=== PATIENT | female | born 1950 | race Caucasian/White ===

== ENCOUNTER 2022-05-27 23:55 | Emergency (ER) | payer OTHER ==
[2022-05-28 01:10] LABS: Absolute Lymphocytes (CBC) 2.1 K/uL (0.7-4.9); Hematocrit 29.2 % (36.0-45.0); Lymphocytes % 17.6 % (15.3-44.8); MCV 94.5 fL (80-100); MPV 8.7 fL (7.6-11.3); RBC Red Blood Cell Count 3.09 M/uL (3.86-4.86)
[2022-05-28 01:20] LABS: Albumin 3.1 g/dL (3.4-5.0); Bilirubin Total 0.2 mg/dL (0.2-1.0); Potassium 4.4 mmol/L (3.5-5.1); Protein, Total 6.1 g/dL (6.4-8.2)
[2022-05-28 01:41] LABS: Urine Blood Negative (Negative); Urine Glucose Negative (Negative); Urine Protein Negative (Negative); Urine pH 5.5 (5.0-7.0)
[2022-05-28] MEDS ORDERED: NA CHLORIDE 0.9% 1,000 ML ONE (01:49)
[2022-05-28] MEDS ORDERED: PANTOPRAZOLE 40 MG INJ ONE (02:34)
[2022-05-28] MEDS ORDERED: NA CHLORIDE 0.9% 250 ML ONE (02:35)
[2022-05-28 03:07] LABS: Protime INR 1.03
--- NOTE | 2022-05-28 04:35 | ER ---
Nurse's Notes [facility] Name: Gabrielle Suazo Age: 71 yrs Sex: Female : 1950 Arrival Date: 05/27/2022 Time: 23:59 Bed 10 Private MD: Diagnosis: Lower GI Bleed Presentation: 05/28 00:17 Chief complaint: Patient states: Pt reports several episodes of diarrhea and nausea kb3 that began at 2100 tonight with associated weakness and indigestion. Pt reports the diarrhea was dark red and smelled foul. Coronavirus screen: Vaccine status: Patient reports receiving the 2nd dose of the covid vaccine. Client denies travel out of the [place] in the last 14 days. At this time, the client does not indicate any symptoms associated with coronavirus-19. Ebola Screen: Patient negative for fever greater than or equal to 101.5 degrees Fahrenheit, and additional compatible Ebola Virus Disease symptoms Patient denies exposure to infectious person. Patient denies travel to an Ebola-affected area in the 21 days before illness onset. No symptoms or risks identified at this time. Initial Sepsis Screen: Does the patient meet any 2 criteria? No. Patient's initial sepsis screen is negative. Does the patient have a suspected source of infection? No. Patient's initial sepsis screen is negative. Risk Assessment: Do you want to hurt yourself or someone else? Patient reports no desire to harm self or others. Onset of symptoms was May 27, 2022 at 21:00. 00:17 Method Of Arrival: Ambulatory kb3 00:17 Acuity: JAZMINE 3 kb3 Triage Assessment: 00:20 General: Appears in no apparent distress. Behavior is calm, cooperative. Pain: Denies kb3 pain. GI: Reports diarrhea, nausea, vomiting. 00:20 GI: Reports. kb3 Historical: - Allergies: 00:20 No Known Allergies; kb3 - Home Meds: 00:20 Keppra 750 mg Oral tab 1 tab 2 times per day [Active]; kb3 - PMHx: 00:20 Seizure; kb3 - PSHx: 00:20 Colectomy; Colostomy; Cholecystectomy; kb3 - Immunization history:: Adult Immunizations up to date, Client reports receiving the 2nd dose of the Covid vaccine, Last tetanus immunization: up to date. - Social history:: Smoking status: Patient reports the use of cigarette tobacco products, smokes one-half pack cigarettes per day, Patient uses alcohol, on a daily basis. Patient/guardian denies using street drugs. Screenin:57 Abuse screen: Denies threats or abuse. Denies injuries from another. Nutritional kd3 screening: No deficits noted. Tuberculosis screening: No symptoms or risk factors identified. Fall Risk Gait- Weak (10 pts.). Assessment: 00:57 General: Appears uncomfortable, Behavior is calm, cooperative. GI: Abdomen is kd3 non-distended. 03:57 Reassessment: Patient is alert, oriented x 3, equal unlabored respirations, skin bb warm/dry/pink. awaiting diagnostic results, Dr Zuñiga at bedside for discussion of findings and recommendations pt to be transferred for higher level of care. Pt verbalized understanding and agrees to plan of care. IV site intact, patent, with fluids infusing. 05:27 Reassessment: Patient is alert, oriented x 3, equal unlabored respirations, skin bb warm/dry/pink. EMS at bedside for transport of pt to [facility] pt's IV sites intact, patent with fluids infusing on [id number]. Vital Signs: 00:17 BP 143 / 89; Pulse 110; Resp 20; Temp 98.9; Pulse Ox 97% ; Weight 74.84 kg; Height 5 kb3 ft. 4 in. (162.56 cm); Pain 0/10; 03:59 BP 123 / 77; Pulse 101; Resp 18 S; Pulse Ox 98% on R/A; bb 00:17 Body Mass Index 28.32 (74.84 kg, 162.56 cm) kb3 ED Course: 05/27 23:59 Patient arrived in ED. ja2 05/28 00:20 Triage completed. kb3 00:20 Arm band placed on left wrist. kb3 00:32 Shu Fine, JESI is Primary Nurse. kd3 00:34 Umair Zuñiga MD is Attending Physician. mh7 00:57 Patient has correct armband on for positive identification. kd3 00:57 CBC with Diff Sent. kd3 00:57 CMP Sent. kd3 00:57 Lipase Sent. kd3 01:58 CT Abd/Pelvis - IV Contrast Only In Process Unspecified. EDMS 02:24 COVID-19 SARS RT PCR (Document "Date of Onset" if Symptomatic) Sent. kd3 02:24 Ptt, Activated Sent. kd3 02:24 Protime (+inr) Sent. kd3 03:45 Chest Single View XRAY In Process Unspecified. EDMS 03:56 Initiated transfer to [facility], spoke with Wendy. Pt wanted to go to [facility], but they wm are at capacity. 04:39 Pt accepted for transfer by Dr. Kassandra Monreal \\T\\ 04:33 per Wendy Babin. wm 05:05 First set of blood cultures drawn by me. Inserted saline lock: 20 gauge in left hand, bb using aseptic technique. 05:29 No provider procedures requiring assistance completed. Patient transferred, IV remains bb in place. Administered Medications: 02:24 Drug: NS 0.9% 1000 ml Route: IV; Rate: 1000 ml; Site: right antecubital; kd3 02:41 Drug: ProTONIX (pantoprazole) 80 mg Route: IVP; Site: right antecubital; kd3 05:29 Follow up: Response: No adverse reaction bb 03:10 Drug: ProTONIX (pantoprazole) 8 mg/hr Route: IV; Rate: 25 ml/hr; Site: right kd3 antecubital; 03:11 Not Given (Patient Refused): Zofran (Ondansetron) 4 mg IVP once; over 2 minutes kd3 03:11 Not Given (Patient Refused): morphine 2 mg IVP once over 4 mins kd3 05:20 Drug: LevaQUIN (levofloxacin) 500 mg Volume: 100 ml; Route: IVPB; Infused Over: 60 bb mins; Site: left hand; 05:28 Follow up: IV Status: Infusion continued upon transfer bb 05:28 Follow up: IV Status: Infusion continued upon transfer bb Medication: 00:57 VIS not applicable for this client. kd3 Outcome: 04:01 Instructed on the need for transfer. bb 04:35 ER care complete, transfer ordered by . [facility] 05:29 Transferred by ground EMS to [facility], Transfer form completed. bb X-rays sent w/ patient. 05:29 Condition: stable 05:29 Patient left the ED. bb Signatures: Dispatcher [employer] EDEliane Ortiz RN RN Umair Ramos MD MD mh7 Lynn Singleton Jessica ja Shu Fine RN RN kd3 Tram Norris RN RN kb3 Corrections: (The following items were deleted from the chart) 00:25 00:17 Chief complaint: Patient states: Pt reports several episodes of diarrhea and kb3 nausea that began at 2100 tonight with associated weakness and indigestion kb3
--- NOTE | 2022-05-28 04:36 | EDPHYS ---
Physician Documentation [facility] Name: Gabrielle Suazo Age: 71 yrs Sex: Female : 1950 Arrival Date: 05/27/2022 Time: 23:59 Bed 10 Private MD: MATT Physician Umair Zuñiga HPI: 05/28 01:38 This 71 yrs old Female presents to ER via Ambulatory with complaints of Nausea, mh7 Dizziness. 01:38 The patient presents to the emergency department with nausea, that is moderate, mh7 diarrhea, that is intermittent, abdominal pain, of the epigastric area, right upper quadrant and left upper quadrant, described as intermittent, vague,\\E\\ waxing and waning, and does not radiate. Onset: The symptoms/episode began/occurred last night, at 21:00. Possible causes: bad food exposure, possibly bad home food. The symptoms are aggravated by nothing. The symptoms are alleviated by nothing. Associated signs and symptoms: Pertinent positives: diarrhea, nausea, Pertinent negatives: anorexia, belching, constipation, dysuria, fever, flatulence, hematuria, vaginal discharge. Severity of symptoms: At their worst the symptoms were moderate last night, in the emergency department the symptoms have improved moderately. Historical: - Allergies: 00:20 No Known Allergies; kb3 - Home Meds: 00:20 Keppra 750 mg Oral tab 1 tab 2 times per day [Active]; kb3 - PMHx: 00:20 Seizure; kb3 - PSHx: 00:20 Colectomy; Colostomy; Cholecystectomy; kb3 - Immunization history:: Adult Immunizations up to date, Client reports receiving the 2nd dose of the Covid vaccine, Last tetanus immunization: up to date. - Social history:: Smoking status: Patient reports the use of cigarette tobacco products, smokes one-half pack cigarettes per day, Patient uses alcohol, on a daily basis. Patient/guardian denies using street drugs. ROS: 01:38 Constitutional: Negative for fever, chills, and weight loss, Eyes: Negative for injury, mh7 pain, redness, and discharge, ENT: Negative for injury, pain, and discharge, Neck: Negative for injury, pain, and swelling, Cardiovascular: Negative for chest pain, palpitations, and edema, Respiratory: Negative for shortness of breath, cough, wheezing, and pleuritic chest pain, Back: Negative for injury and pain, : Negative for injury, bleeding, discharge, and swelling, MS/Extremity: Negative for injury and deformity, Skin: Negative for injury, rash, and discoloration, Neuro: Negative for headache, weakness, numbness, tingling, and seizure, Psych: Negative for depression, anxiety, suicide ideation, homicidal ideation, and hallucinations, Allergy/Immunology: Negative for hives, rash, and allergies, Endocrine: Negative for neck swelling, polydipsia, polyuria, polyphagia, and marked weight changes, Hematologic/Lymphatic: Negative for swollen nodes, abnormal bleeding, and unusual bruising. Exam: 01:38 Head/Face: Normocephalic, atraumatic. Eyes: Pupils equal round and reactive to light, mh7 extra-ocular motions intact. Lids and lashes normal. Conjunctiva and sclera are non-icteric and not injected. Cornea within normal limits. Periorbital areas with no swelling, redness, or edema. Neck: Trachea midline, no thyromegaly or masses palpated, and no cervical lymphadenopathy. Supple, full range of motion without nuchal rigidity, or vertebral point tenderness. No Meningismus. Chest/axilla: Normal chest wall appearance and motion. Nontender with no deformity. No lesions are appreciated. Cardiovascular: Regular rate and rhythm with a normal S1 and S2. No gallops, murmurs, or rubs. Normal PMI, no JVD. No pulse deficits. Respiratory: Lungs have equal breath sounds bilaterally, clear to auscultation and percussion. No rales, rhonchi or wheezes noted. No increased work of breathing, no retractions or nasal flaring. 01:38 Back: No spinal tenderness. No costovertebral tenderness. Full range of motion. Skin: Warm, dry with normal turgor. Normal color with no rashes, no lesions, and no evidence of cellulitis. MS/ Extremity: Pulses equal, no cyanosis. Neurovascular intact. Full, normal range of motion. Neuro: Awake and alert, GCS 15, oriented to person, place, time, and situation. Cranial nerves II-XII grossly intact. Motor strength 5/5 in all extremities. Sensory grossly intact. Cerebellar exam normal. Normal gait. Psych: Awake, alert, with orientation to person, place and time. Behavior, mood, and affect are within normal limits. 01:38 Constitutional: The patient appears in no acute distress, alert, awake, uncomfortable. 01:38 Abdomen/GI: Inspection: obese Bowel sounds: normal, in all quadrants, Palpation: moderate abdominal tenderness, in the epigastric area, mass, is not appreciated, rebound tenderness, is not appreciated, voluntary guarding, is not appreciated, involuntary guarding, is not appreciated, no appreciated organomegaly, Indicators: McBurney's point is not tender, Galvan's sign is negative, Rovsing's sign is negative, Obturator sign is negative, Psoas sign is negative, Liver: no appreciated palpable abnormalities, Hernia: not appreciated. 02:17 Abdomen/GI: Rectal exam: rectal tone normal, Stool: grossly bloody, guaiac positive, mh7 maroon, mass, is not appreciated, swelling, is not appreciated, tenderness, is not appreciated, fecal impaction, is not appreciated, the exam is chaperoned by the nurse. Vital Signs: 00:17 BP 143 / 89; Pulse 110; Resp 20; Temp 98.9; Pulse Ox 97% ; Weight 74.84 kg; Height 5 kb3 ft. 4 in. (162.56 cm); Pain 0/10; 03:59 BP 123 / 77; Pulse 101; Resp 18 S; Pulse Ox 98% on R/A; bb 00:17 Body Mass Index 28.32 (74.84 kg, 162.56 cm) kb3 MDM: 04:33 Differential diagnosis: Nonspecific abd pain, gastritis, pancreatitis, diverticulitis, mh7 viral gastroenteritis, gastroenteritis, GI bleed. Data reviewed: vital signs, nurses notes, lab test result(s), CBC, electrolytes, EKG, radiologic studies, CT scan, plain films. Data interpreted: Pulse oximetry: on room air is 98 %. Interpretation: normal. Counseling: I had a detailed discussion with the patient and/or guardian regarding: the historical points, exam findings, and any diagnostic results supporting the discharge/admit diagnosis, lab results, radiology results, the need to transfer to another facility, [facility] does not immediately have the required specialist. Response to treatment: the patient's symptoms have markedly improved after treatment. 04:35 Patient medically screened. mh7 05/28 00:45 Order name: CBC with Diff; Complete Time: 01:37 kd3 0815 00:45 Order name: CMP; Complete Time: 01:37 3 05/28 00:45 Order name: Lipase; Complete Time: 01:37 [facility] 05/28 01:42 Order name: Urine Dipstick-Ancillary; Complete Time: 01:42 [facility] 05/28 01:43 Order name: COVID-19 SARS RT PCR (Document "Date of Onset" if Symptomatic); Complete [facility] Time: 04:15 05/28 01:44 Order name: Protime (+inr); Complete Time: 03:27 [facility] 05/28 01:09 Order name: CT Abd/Pelvis - IV Contrast Only [facility] 05/28 01:44 Order name: Ptt, Activated; Complete Time: 03:27 [facility] 05/28 01:44 Order name: Type And Screen; Complete Time: 04:25 [facility] 05/28 03:27 Order name: Chest Single View XRAY [facility] 05/28 04:16 Order name: Blood Culture Adult (2) [facility] 05/28 00:45 Order name: IV Saline Lock; Complete Time: 00:57 [facility] 05/28 00:45 Order name: Labs collected and sent; Complete Time: 00:57 [facility] 05/28 01:08 Order name: Urine Dipstick-Ancillary (obtain specimen); Complete Time: 01:47 [facility] 05/28 01:08 Order name: EKG; Complete Time: 01:09 [facility] 05/28 01:08 Order name: EKG - Nurse/Tech; Complete Time: 02:24 mh7 Administered Medications: 02:24 Drug: NS 0.9% 1000 ml Route: IV; Rate: 1000 ml; Site: right antecubital; kd3 02:41 Drug: ProTONIX (pantoprazole) 80 mg Route: IVP; Site: right antecubital; kd3 05:29 Follow up: Response: No adverse reaction bb 03:10 Drug: ProTONIX (pantoprazole) 8 mg/hr Route: IV; Rate: 25 ml/hr; Site: right kd3 antecubital; 03:11 Not Given (Patient Refused): Zofran (Ondansetron) 4 mg IVP once; over 2 minutes kd3 03:11 Not Given (Patient Refused): morphine 2 mg IVP once over 4 mins kd3 05:20 Drug: LevaQUIN (levofloxacin) 500 mg Volume: 100 ml; Route: IVPB; Infused Over: 60 bb mins; Site: left hand; 05:28 Follow up: IV Status: Infusion continued upon transfer bb 05:28 Follow up: IV Status: Infusion continued upon transfer bb Disposition Summary: 05/28/22 04:35 Transfer Ordered Transfer Location: [place] [address] Reason: Higher level of care [facility] Condition: Stable mh Problem: new 7 Symptoms: have improved mh7 Accepting Physician: Dr. Monreal(05/28/22 05:29) bb Diagnosis - Lower GI Bleed [facility] Forms: - Medication Reconciliation Form [facility] - SBAR form [facility] Signatures: Dispatcher [employer] EDEliane Ortiz RN RN bb Umair Zuñiga MD MD mh7 Shu Fine RN RN kd3 Tram Norris RN RN kb3 Corrections: (The following items were deleted from the chart) 05:29 04:35 Dr. Monreal [facility] bb
[2022-05-28] MEDS ORDERED: Levofloxacin500mg IV 500 MG/100 ML BAG IV ONE (05:00)
[2022-05-28 07:20] VITALS: TEMP 98.9
[2022-05-28 07:31] VITALS: BP 123/77; O2SAT 98
--- NOTE | 2022-05-28 09:51 | RAD REPORT ---
EXAM DESCRIPTION: XR Chest, 1 View CLINICAL HISTORY: The patient is 71 years old and is Female; CONGESTION TECHNIQUE: Frontal view of the chest. COMPARISON: No relevant prior studies available. FINDINGS: LUNGS: Patchy opacities in the lower lobes is noted, left greater than right. The lungs are otherwise clear. PLEURAL SPACE: Unremarkable. No pneumothorax. HEART: Unremarkable. No cardiomegaly. MEDIASTINUM: Unremarkable. BONES/JOINTS: Mild degenerative change of the bones is noted. UPPER ABDOMEN: Unremarkable as visualized. IMPRESSION: Bibasilar opacities, left greater than right. Findings suggest an infectious process. Electronically signed by: Gloria Samayoa MD 05/28/2022 4:05 AM CDT Due to temporary technical issues with the PACS/Fluency reporting system, reports are being signed by the in house radiologists without review as a courtesy to insure prompt reporting. The interpreting radiologist is fully responsible for the content of the report.
--- NOTE | 2022-05-28 09:59 | RAD REPORT ---
EXAM DESCRIPTION: CT Abdomen and Pelvis With Intravenous Contrast CLINICAL HISTORY: Abdominal pain, acute, nonlocalized TECHNIQUE: Axial computed tomography images of the abdomen and pelvis with intravenous contrast. S agittal and coronal reformatted images were created and reviewed. This CT exam was performed using one or more of the following dose reduction techniques: automated exposure control, adjustment of t he mA and/or kV according to patient size, and/or use of iterative reconstruction technique. COMPARISON: No relevant prior studies available. FINDINGS: Lung bases: Partially visualized ill-defined, spiculated left basilar opacity measuring 5 x 1.8 cm in axial dimensions. Surrounding patchy reticulonodular and linear opacities. Additional p atchy reticulonodular right basilar opacities. ABDOMEN: Liver: Unremarkable. No mass. Gallbladder and bile ducts: Prior cholecystectomy. No ductal dilation. Pancreas: Unremarkable. No mass. No ductal dilation. Spleen: Unremarkable. No splenomegaly. Adrenals: 1.8 cm left and 1.6 cm right adrenal nodules. Kidneys and ureters: Small left renal cysts. No follow-up imaging is necessary. Lobulated left ck l contour with areas of cortical thinning/scar. No calculi. No hydronephrosis. Stomach and bowel: Mid abdominal small bowel anastomosis. There are borderline prominent small ora l loops with air-fluid levels in the left abdomen. Subtle transition in the right pelvis. Moderate st ool within the proximal to mid large bowel. Colonic diverticula without adjacent inflammatory change. No mucosal thickening. PELVIS: Appendix: Normal caliber appendix. No findings to suggest acute appendicitis. Bladder: The urinary bladder is decompressed. Reproductive: There has been a hysterectomy. No adnexal cysts or masses are identified. ABDOMEN and PELVIS: Intraperitoneal space: Unremarkable. No free air. No significant fluid collection. Bones/joints: Multilevel spondylosis. No acute fracture. No dislocation. Soft tissues: Unremarkable. Vasculature: Unremarkable. No abdominal aortic aneurysm. Lymph nodes: Unremarkable. No enlarged lymph nodes. Other findings: Bilateral pelvic surgical clips. IMPRESSION: 1. Findings which may be related to mild ileus. Early/partial small bowel obstruction is not excluded. 2. Bilateral adrenal lesions. Possible adenomas. In light of the findings in the lower chest, metas tases cannot be entirely excluded on the basis of this examination. Recommend adrenal washout CT, deanna mical shift MRI or PET/CT (Consider PET/CT when morphological characteristics suggest metastasis). Re ferences: JACR 2017 May;14(8):1038-44, JCAT 2016 Dec-Jan;40(2):194-200 3. Partially visualized ill-defined spiculated left basilar opacity which may be related to pleural parenchymal scar. Underlying mass/malignancy is not excluded. Recommend prompt non-contrast Chest CT for further evaluation. These guidelines do not apply to immunocompromised patients and patients wit h cancer. Follow up in patients with significant comorbidities as clinically warranted. For lung canc er screening, adhere to Lung-RADS guidelines. Reference: Radiology. 2017; 284(1):228-43. 4. Left greater than right basilar infiltrates. 5. Other findings as above. Electronically signed by: Gloria Cotto MD 05/28/2022 2:34 AM CDT Due to temporary technical issues with the PACS/Fluency reporting system, reports are being signed by the in house radiologists without review as a courtesy to insure prompt reporting. The interpreting radiologist is fully responsible for the content of the report.
--- NOTE | 2022-05-29 08:17 | EKG ---
Test Date: 2022-05-28 Test Time: 02:15:47 Rotary Saw Operator: ZAINAB MEASUREMENT RESULTS: Intervals: Rate: 96 CT: 168 QRSD: 84 QT: 350 QTc: 442 [place]: P: 75 CT: 168 QRS: 70 T: 28 INTERPRETIVE STATEMENTS: Sinus rhythm with occasional premature ventricular complexes Otherwise normal ECG No previous ECG available for comparison Electronically Signed On 05-29-22 08:11:32 CDT by Bertrand Bah
== END 2022-05-28 05:29 | disposition short-term general hospital (02) ==
LOC: ER 23:55
DX: K92.2 Gastrointestinal hemorrhage, unspecified (principal); R11.0 Nausea; Z20.822 Contact with and (suspected) exposure to COVID-19; F17.210 Nicotine dependence, cigarettes, uncomplicated
CPT/HCPCS: 93005; 87040 ×2; 85025; 36415; 86900; 86850; 85610; 86901; 85730; 81003; 83690; 80053; 74177; 71045; U0003; Q9967; C9113; J7050; J7030; 99285